=== PATIENT | male | born 1990 | race Caucasian/White ===

== ENCOUNTER 2018-06-16 15:30 | Emergency (ER) | payer OTHER ==
[~2018-06-16] VITALS: Ht 165.1 cm; Wt 82.6 kg
[2018-06-16 16:06] VITALS: Ht 165.1 cm; Wt 82.6 kg
[2018-06-16 17:56] VITALS: BP 140/74
== END 2018-06-16 17:56 | disposition home or self-care (01) ==
LOC: ED 15:30
DX: R19.7 Diarrhea, unspecified (principal); I10 Essential (primary) hypertension